=== PATIENT | female | born 1995 | race Caucasian/White ===

== ENCOUNTER 2021-04-18 20:45 | Emergency (ER) | payer OTHER ==
[2021-04-18 20:58] VITALS: BP 114/62; PULSE 63; RESP 16; TEMP 97.3
[2021-04-18] MEDS ORDERED: KETOROLAC 15 MG/ML 1 ML VIAL IM STA ×2 (22:19→23:12)
--- NOTE | 2021-04-18 22:44 | ED ---
General Adult HPI - General Chief complaint: Back Pain/Injury Stated complaint: Pain in RT Breast Time Seen by Provider: 04/18/21 22:09 Source: patient, RN notes reviewed Mode of arrival: ambulatory Limitations: no limitations - History of Present Illness Initial comments: 26-year-old female presents to the emergency room for a chief complaint of right breast pain. Patient has had right breast pain since this evening. States that her gave her a hug to crack her back and she felt a pop in her right breast and then swelling and pain. Patient states she is currently breast- feeding. States she did not have any symptoms prior to this. Denies fevers.Patient has no other complaints at this time including shortness of breath, chest pain, abdominal pain, nausea or vomiting, headache, or visual changes. - Related Data Previous Rx's Medication Instructions Recorded Dicloxacillin [Dynapen] 500 mg PO Q6H 7 Days #28 capsule 04/19/21 Allergies Allergy/AdvReac Type Severity Reaction Status Date / Time No Known Allergies Allergy Verified 04/18/21 20:58 Review of Systems ROS Statement: Those systems with pertinent positive or pertinent negative responses have been documented in the HPI. ROS Other: All systems not noted in ROS Statement are negative. Past Medical History Past Medical History: No Reported History History of Any Multi-Drug Resistant Organisms: None Reported Past Surgical History: No Surgical Hx Reported Smoking Status: Never smoker Past Alcohol Use History: None Reported Past Drug Use History: None Reported General Exam Limitations: no limitations General appearance: alert, in no apparent distress Head exam: Present: atraumatic Eye exam: Present: normal appearance, PERRL, EOMI. Absent: scleral icterus, conjunctival injection ENT exam: Present: normal exam, mucous membranes moist Neck exam: Present: normal inspection, full ROM. Absent: tenderness Respiratory exam: Present: normal lung sounds bilaterally, other (She has tenderness and induration of the superior aspect of the right breast). Absent: respiratory distress, wheezes Cardiovascular Exam: Present: regular rate, normal rhythm, normal heart sounds GI/Abdominal exam: Present: soft, normal bowel sounds. Absent: distended, tenderness Course Vital Signs 04/18/21 20:55 Temperature 97.3 F L Pulse Rate 63 Respiratory 16 Rate Blood Pressure 114/62 O2 Sat by Pulse 99 Oximetry Medical Decision Making - Medical Decision Making vitals are stable. Patient is well appearing. Patient has a mildly edematous right breast noted in the superior aspect with some mild erythema. This is tender. US showed there is a lymph node in the right breast however no fluid collection identified. No evidence of the solid breast mass. At this time patient could be causing increasing hematoma from trauma. This could also be an early onset mastitis. We will treat accordingly. Discussed care parameters. Discussed return parameters. She will follow up with her [employer] tomorrow. She will return here for any worsening symptoms. Disposition Clinical Impression: Breast pain, right Disposition: HOME SELF-CARE Condition: Good Instructions (If sedation given, give patient instructions): and Breast Engorgement (ED) Additional Instructions: Take Motrin and Tylenol for pain. Take antibiotic as directed. Continue to breast-feed and/or pump. Try warm compresses. Follow up with your [employer] tomorrow. If your symptoms are worsening return to the emergency room. Prescriptions: Dicloxacillin [Dynapen] 500 mg PO Q6H 7 Days #28 capsule Is patient prescribed a controlled substance at d/c from ED?: No Referrals: Raine Hanley MD [REFERRING] - 1-2 days Time of Disposition: 00:25
--- NOTE | 2021-04-19 00:01 | USB ---
EXAMINATION TYPE: US breast complete RT DATE OF EXAM: 04/18/2021 COMPARISON: NONE CLINICAL HISTORY: pain, swelling, induration, breast feeding. Pain, swelling, induration, patient is currently breast feeding. Patient's mother had a history of breast cancer. Scanned left breast, left retroareolar area, and left axillary tail. Anechoic ducts visualized. Patie nt is breast feeding. -Hypoechoic area with hyperechoic center and vascular hilum seen within the right axillary tail: 1.2 x 0.9 x 0.6 cm. Limited ER exam, patient needs follow up with [facility]. IMPRESSION: 12 x 6 mm lymph node demonstrated in the axilla of the right breast. There are ducts demonstrated in the right breast. No fluid collection identified to suggest an absces s. No evidence of a solid breast mass. Category BI-RADS 2 benign finding
[2021-04-19] MEDS ORDERED: DICLOXACILLIN 250 MG CAPSULE PO STA (00:13)
[2021-04-19] MEDS ORDERED: CEPHALEXIN 500 MG CAP PO STA (00:36)
== END 2021-04-19 00:48 | disposition home or self-care (01) ==
LOC: EC 20:45
DX: N64.4 Mastodynia (principal)
CPT/HCPCS: 99283; 96372; 76641; J1885

== ENCOUNTER 2021-06-02 21:06 | Emergency (ER) | payer OTHER ==
[2021-06-02 21:11] VITALS: TEMP 98.2
--- NOTE | 2021-06-02 21:54 | XR ---
EXAMINATION TYPE: XR chest 2V DATE OF EXAM: 06/02/2021 COMPARISON: NONE HISTORY: Cough and congestion TECHNIQUE: 2 views FINDINGS: There is some mild infiltrate in the posterior left lower lobe. The other lung tripp are c lear. Heart and mediastinum are normal. Diaphragm is normal. Bony thorax is intact. IMPRESSION: Small pneumonia left lower lobe.
--- NOTE | 2021-06-02 22:08 | ED ---
General Adult HPI - General Chief complaint: Chest Pain Stated complaint: Chest Tightness,SOB Time Seen by Provider: 06/02/21 21:15 Source: patient, RN notes reviewed Mode of arrival: ambulatory Limitations: no limitations - History of Present Illness Initial comments: Patient is a 26-year-old female that presents to the emergency department complaining of shortness of breath chest pain. She notes her 2-month-old recently discharged from the hospital today with Covid. Patient notes she wanted be tested. Patient was otherwise well-appearing in no apparent distress. She denied any other underlying health issues. She denied headache nausea vomiting diarrhea constipation fever fatigue chills. - Related Data Previous Rx's Medication Instructions Recorded Dicloxacillin [Dynapen] 500 mg PO Q6H 7 Days #28 capsule 04/19/21 Azithromycin [Zithromax] 500 mg PO DAILY #5 tab 06/02/21 predniSONE 50 mg PO DAILY #5 tab 06/02/21 Allergies Allergy/AdvReac Type Severity Reaction Status Date / Time No Known Allergies Allergy Verified 06/02/21 21:11 Review of Systems ROS Statement: Those systems with pertinent positive or pertinent negative responses have been documented in the HPI. ROS Other: All systems not noted in ROS Statement are negative. Past Medical History Past Medical History: No Reported History History of Any Multi-Drug Resistant Organisms: None Reported Past Surgical History: No Surgical Hx Reported Smoking Status: Never smoker Past Alcohol Use History: None Reported Past Drug Use History: None Reported General Exam Limitations: no limitations General appearance: alert, in no apparent distress Head exam: Present: atraumatic, normocephalic, normal inspection Eye exam: Present: normal appearance, PERRL, EOMI. Absent: scleral icterus, conjunctival injection, periorbital swelling ENT exam: Present: normal exam, mucous membranes moist Neck exam: Present: normal inspection Respiratory exam: Present: normal lung sounds bilaterally. Absent: respiratory distress, wheezes, rales, rhonchi, stridor Cardiovascular Exam: Present: regular rate, normal rhythm, normal heart sounds. Absent: systolic murmur, diastolic murmur, rubs, gallop, clicks GI/Abdominal exam: Present: soft, normal bowel sounds. Absent: distended, tenderness, guarding, rebound, rigid Extremities exam: Present: normal inspection, full ROM, normal capillary refill. Absent: tenderness, pedal edema, joint swelling, calf tenderness Neurological exam: Present: alert, oriented X3 Psychiatric exam: Present: normal affect, normal mood Skin exam: Present: warm, dry, intact, normal color. Absent: rash Course Vital Signs 06/02/21 21:07 Temperature 98.2 F Pulse Rate 103 H Respiratory 18 Rate Blood Pressure 117/70 O2 Sat by Pulse 99 Oximetry EKG Findings - EKG Comments: EKG Findings:: Ventricular rate 99 bpm, AR interval 150 ms, QRS duration 86 ms, QTC 451 ms, normal sinus rhythm, normal ECG. Medical Decision Making - Medical Decision Making [id number] female with shortness of breath and some minimal chest pain, exposed to Covid by her 2-month-old child. Covid test, chest x-ray ordered. Covid test positive. Chest x-ray shows small left lower lobe pneumonia. Antibiotics was a pharmacy. 2 mg of Decadron ordered. Case discussed with Dr. Miranda. - Lab Data Lab Results 06/02/21 Range/Units 21:24 Coronavirus (PCR) Detected A (Not Detectd) - EKG Data -: EKG Interpreted by Nv EKG shows normal: sinus rhythm Rate: normal - Radiology Data Radiology results: report reviewed, image reviewed Chest x-ray: Small left lower lobe pneumonia. Disposition Clinical Impression: COVID Disposition: HOME SELF-CARE Condition: Stable Instructions (If sedation given, give patient instructions): Coronavirus Disease 2019 (COVID-19) Additional Instructions: Please return to the Emergency Department if symptoms worsen or any other concerns. Take Tylenol Motrin alternating every 3 hours for fever aches and pains. Follow-up primary care 1-2 days. for your year 2-month-old he continued 10 mg/kg which is approximately 2 mL's of Tylenol for fevers. Is patient prescribed a controlled substance at d/c from ED?: No Referrals: Ole Potter DO [Primary Care Provider] - 1-2 days Time of Disposition: 22:08
[2021-06-02] MEDS: DEXAMETHASONE SOD PHOSPHATE 10 MG/ML 1 ML VIAL IM STA (22:17)
[2021-06-02 22:23] VITALS: BP 130/84; PULSE 70; RESP 20
== END 2021-06-02 22:36 | disposition home or self-care (01) ==
LOC: EC 21:06
DX: U07.1 COVID-19 (principal); J12.82 Pneumonia due to coronavirus disease 2019
CPT/HCPCS: 93005; 87635; 71046; 99285; 96372; J1100

== ENCOUNTER → 2023-12-10 | Outpatient (CLI) | payer BC ==
--- NOTE | 2023-12-11 06:54 | CA ---
Transthoracic Echo Report Name: Otto Correa Age: 28 Gender: F : 1995 Exam Date: 12/10/2023 11:05 Exam Location: [facility] Ht (in): 60 Wt (lb): 140 Ordering Physician: Ole Potter DO Attending/Referring Phys: Pack Worker Supervisor Mari Moy RDCS Procedure CPT: Indications: R00.2 palpitations Cardiac Hx: Technical Quality: Good Contrast 1: Total Dose (mL): Contrast 2: Total Dose (mL): MEASUREMENTS (Male / Female) Normal Values 2D ECHO LV Diastolic Diameter PLAX 4.7 cm 4.2 - 5.9 / 3.9 - 5.3 cm LV Systolic Diameter PLAX 3.1 cm IVS Diastolic Thickness 0.5 cm 0.6 - 1.0 / 0.6 - 0.9 cm LVPW Diastolic Thickness 0.7 cm 0.6 - 1.0 / 0.6 - 0.9 cm LV Relative Wall Thickness 0.3 RV Internal Dim ED PLAX 3.1 cm LA Systolic Diameter LX 3.1 cm 3.0 - 4.0 / 2.7 - 3.8 cm LV Diastolic Volume MOD 4C 88.7 cm??? LV Systolic Volume MOD 4C 31.7 cm??? LV Ejection Fraction MOD 4C 64.3 % LV Cardiac Index MOD 4C 2131.8 cm???/min???m??? LV Diastolic Length 4C 7.8 cm LV Systolic Length 4C 5.9 cm LV Diastolic Volume MOD 2C 68.1 cm??? LV Systolic Volume MOD 2C 29.7 cm??? LV Ejection Fraction MOD 2C 56.3 % LV Cardiac Index MOD 2C 1433.7 cm???/min???m??? LV Diastolic Length 2C 7.9 cm LV Systolic Length 2C 6.1 cm LA Volume 37.0 cm??? 18 - 58 / 22 - 52 cm??? LA Volume Index 22.3 cm???/m??? 16 - 28 cm???/m??? M-MODE Aortic Root Diameter MM 2.9 cm AV Cusp Separation MM 2.3 cm DOPPLER AV Peak Velocity 156.0 cm/s AV Peak Gradient 9.7 mmHg MV Area PHT 2.9 cm??? Mitral E Point Velocity 101.5 cm/s Mitral A Point Velocity 61.6 cm/s Mitral E to A Ratio 1.6 MV Deceleration Time 258.6 ms TR Peak Velocity 205.2 cm/s TR Peak Gradient 16.9 mmHg Right Ventricular Systolic Press 21.9 mmHg FINDINGS Left Ventricle Left ventricular ejection fraction is estimated at 55-60 %. Left ventricular cavity size normal. Left ventricular wall thickness normal. Normal left ventricular wall motion. Right Ventricle Normal right ventricular size and function. Right ventricular systolic pressure within normal limits. Right Atrium Normal right atrial size. No right atrial thrombus or mass seen.prominent eustachian valve in the right atrium (normal variant). Left Atrium Normal left atrial size. No left atrial thrombus or mass present. Mitral Valve Structurally normal mitral valve. No mitral stenosis, or prolapse.trace mitral regurgitation. Aortic Valve Trileaflet aortic valve. No aortic valve stenosis. Trace Regurgitation. Tricuspid Valve Structurally normal tricuspid valve. mild tricuspid regurgitation. Pulmonic Valve Structurally normal pulmonic valve. Trace pulmonic regurgitation. Pericardium No pericardial or pleural effusion. Aorta Normal size aortic root and proximal ascending aorta. CONCLUSIONS 1. Normal left ventricle size and systolic function 2. Mild tricuspid regurgitation with trace aortic and mitral regurgitation Previewed by: Dr. Lisa Gandhi MD (Electronically Signed) Final Date: 11 December 2023 06:53
== END | disposition home or self-care (01) ==
LOC: RADECHMAIN 11:02
PROVIDERS: ATTEND Family Medicine
DX: R00.2 Palpitations (principal); I08.1 Rheumatic disorders of both mitral and tricuspid valves
CPT/HCPCS: 93306